=== PATIENT | male | born 1985 ===

== ENCOUNTER 2017-05-01 23:41 | Emergency (ER) | payer BC ==
[2017-05-01 23:47] VITALS: BP 111/73; PULSE 82; TEMP 98; BMI 22.9
[2017-05-01] MEDS ORDERED: LIDOCAINE HCL 1%, 10 MG/ML (50 mL VIAL) SQ ONE (23:52)
[2017-05-02] MEDS ORDERED: SULFAMETHOXAZOLE/TRIMETHOPRIM 800MG/160MG D.S. TABLET PO ONE (00:06)
[2017-05-02] MEDS ORDERED: SULFAMETHOXAZOLE/TRIMETHOPRIM 800MG/160MG D.S. TABLET ONE (00:07)
--- NOTE | 2017-05-02 00:08 | PDOC ---
History of Present Illness - General Chief Complaint: Pain, Acute Stated Complaint: EAR ACHE X 1 DAY/CYST TO EAR X 1 MONTH Time Seen by Provider: 05/01/17 23:43 History Source: Patient Exam Limitations: No Limitations - History of Present Illness Initial Comments: 05/02/17 00:09 32-year-old male with prior history of an abscess several years ago behind his right ear presents with an abscess behind his left ear for approximately one month. Has become reportedly increased in size and sore more painful and he denies any fevers or chills. Came into the ED for further evaluation. Past History - Past Medical History Allergies/Adverse Reactions: Allergies Allergy/AdvReac Type Severity Reaction Status Date / Time No Known Allergies Allergy Verified 05/01/17 23:43 Home Medications: Ambulatory Orders Sulfamethoxazole/Trimethoprim [Bactrim Ds -] 1 tab PO BID #14 tablet 05/02/17 Other medical history: DENIES - Surgical History Appendectomy: Yes - Psycho/Social/Smoking Cessation Hx Anxiety: No Suicidal Ideation: No Smoking History: Current every day smoker Have you smoked in the past 12 months: Yes Number of Cigarettes Smoked Daily: 10 Information on smoking cessation initiated: Yes 'Breaking Loose' booklet given: 05/01/17 Hx Alcohol Use: No Drug/Substance Use Hx: No Substance Use Type: None Review of Systems - Review of Systems Able to Perform ROS?: Yes Comments:: 05/02/17 00:10 GENERAL/CONSTITUTIONAL: No fever, weakness. HEAD, EYES, EARS, NOSE AND THROAT: No change in vision. No ear pain or discharge. No sore throat. Skin abscess behind his left ear CARDIOVASCULAR: No chest pain or shortness of breath. RESPIRATORY: No cough, wheezing, or hemoptysis. GASTROINTESTINAL: No abdominal pain, nausea, vomiting, diarrhea, or decreased PO intolerance. GENITOURINARY: No dysuria, frequency, or change in urination. MUSCULOSKELETAL: No joint or muscle swelling or pain. No neck or back pain. SKIN: No rash NEUROLOGIC: No headache, vertigo, loss of consciousness, or change in strength/ sensation. ENDOCRINE: No increased thirst. No abnormal weight change. HEMATOLOGIC/LYMPHATIC: No anemia, easy bleeding, or history of blood clots. ALLERGIC/IMMUNOLOGIC: No hives or skin allergy. *Physical Exam - Vital Signs Last Vital Signs Temp Pulse Resp BP Pulse Ox 98 F 82 16 111/73 97 05/01/17 23:43 05/01/17 23:43 05/01/17 23:43 05/01/17 23:43 05/01/17 23:43 - Physical Exam Comments: 05/02/17 00:10 GENERAL: Awake, alert, and fully oriented, in no acute distress. HEAD: No signs of trauma EYES: PERRLA, EOMI, sclera anicteric, conjunctiva clear ENT: Auricles normal inspection, hearing grossly normal, nares patent, oropharynx clear without exudates. Approximately 2x2 cm fluctuance mass, mildly tender to palpation, posterior to left ear. EXTREMITIES: Normal range of motion, no edema. No clubbing or cyanosis. No cords, erythema, or tenderness NEUROLOGICAL: Cranial nerves II through XII grossly intact. Normal speech, normal gait SKIN: Warm, Dry, normal turgor, no rashes or lesions noted. Procedures - Incision and Drainage I&D Site: Left: Other (posterior to left ear) Betadine cleansed: (cleaned with alcohol) Anesthesia: 1% Lidocaine Volume(ml): 1 Blade Size: 11 Attempts: 1 Plain Packing: Yes (1/4 inch packing placed) Complications: other Dressing: Yes ED Treatment Course - Medications Given in the ED: ED Medications Discontinued Medications Generic Name Dose Route Start Last Admin Trade Name Vonnie PRN Reason Stop Dose Admin Lidocaine HCl 5 ml 05/01/17 23:52 05/02/17 00:05 Xylocaine 1% SQ 05/01/17 23:53 Not Given ONCE ONE Medical Decision Making - Medical Decision Making 05/02/17 00:12 Vital Signs Temp Pulse Resp BP Pulse Ox 98 F 82 16 111/73 97 05/01/17 23:43 05/01/17 23:43 05/01/17 23:43 05/01/17 23:43 05/01/17 23:43 Bedside ultrasound demonstrated a pocket of fluid. With the patient's consent, local anesthesia was achieved with 1% lidocaine without epinephrine. 11 blade was utilized. Approximately 1 mL of purulent drainage obtained. Wound culture was ordered. Packing placed. Bactrim was ordered. Patient to return to the ED in 2 days for wound check. I discussed the physical exam findings, ancillary test results and final diagnoses with the patient. I answered all of the patient's questions. The patient was satisfied with the care received and felt comfortable with the discharge plan and treatment plan. The patient will call their primary care physician within 24 hours to arrange follow-up and will return to the Emergency Department with any new, persistant or worsening symptoms. *DC/Admit/Observation/Transfer Diagnosis at time of Disposition: Abscess - Discharge Dispostion Disposition: HOME Condition at time of disposition: Stable Admit: No - Prescriptions Prescriptions: Sulfamethoxazole/Trimethoprim [Bactrim Ds -] 1 tab PO BID #14 tablet - Referrals Referrals: Arnel Kebede MD [Staff Physician] - - Patient Instructions Printed Discharge Instructions: DI for Incision and Drainage of a Skin Abscess Additional Instructions: You have had an abscess drained. Please take the bactrim every 12 hours for the next 7 days. Please keep the packing in until your next visit. Please return to the ER in 2 days for wound check. Take 600 mg ibuprofen every 6 hours as needed for pain.
== END 2017-05-02 00:12 | disposition home or self-care (01) ==
LOC: FER 23:41
PROC: 0H93XZZ Drainage of Left Ear Skin, External Approach (ICD-10-PCS; principal; 2017-05-01)
DX: H60.02 Abscess of left external ear (principal); F17.210 Nicotine dependence, cigarettes, uncomplicated
CPT/HCPCS: 87070; 87205; 99281-25

== ENCOUNTER 2017-05-03 23:34 | Emergency (ER) | payer BC ==
[2017-05-03 23:41] VITALS: BP 109/69; PULSE 78; TEMP 98; BMI 22.1
--- NOTE | 2017-05-03 23:46 | PDOC ---
Suture Removal/Wound Check HPI - History of Present Illness Chief Complaint: Revisit,Wound Recheck Stated Complaint: PACKING REMOVAL Time Seen by Provider: 05/03/17 23:46 Date of Last ED visit: 05/01/17 - Previous ED Treatment Type of procedure performed on last visit: Yes: I&D of Abscess Antibiotics Prescribed: Yes - Onset of Previous Treatment Comment:: This 32-year-old man presents 2 days after incision and drainage of abscess behind his left ear was performed here. Patient reports no significant pain and no fever/chills since procedure. Gauze was changed over the packing but packing was not removed at home. No other new problems. Patient has been taking Bactrim twice a day as prescribed. Past History - Past Medical History Allergies/Adverse Reactions: Allergies No Known Allergies Allergy (Verified 05/03/17 23:36) Home Medications: Ambulatory Orders Sulfamethoxazole/Trimethoprim [Bactrim Ds -] 1 tab PO BID #14 tablet 05/02/17 - Immunization History Immunizations Up to Date: No - Social History Smoking Status: Current every day smoker Number of Ciarettes Per Day: 10 Suture Removal/Wound Check PE - Physical Exam Comments: Wound packing removed without difficulty. Small amount of purulent drainage mixed with blood expressed from the wound without significant tenderness. Afterwards, there is a small amount of bleeding from the abscess cavity that was controlled with direct pressure . Wound was left open. Wound culture and sensitivity from 05/01 revealed normal skin bassem. Since there is no significant erythema/edema/tenderness of the wound, patient advised to discontinue Bactrim. Patient will allow water to flow into the wound while taking a shower; he can use Band-Aid on wound during the day as needed if there is any residual bleeding but to leave the wound open as much as possible. Patient will return to the emergency room if there is any recurrent swelling or pain in the area. *DC/Admit/Observation/Transfer Diagnosis at time of Disposition: Wound check, abscess - Discharge Dispostion Disposition: HOME Condition at time of disposition: Stable - Patient Instructions Printed Discharge Instructions: DI for Incision and Drainage of a Skin Abscess , Smoking Cessation Additional Instructions: Stop antibiotics Can allow water to wash over wound during shower bandaid to wound as needed Return to ER or see your doctor very becomes red/swollen/painful
== END 2017-05-04 | disposition home or self-care (01) ==
LOC: FER 23:34
DX: Z48.01 Encounter for change or removal of surgical wound dressing (principal); F17.210 Nicotine dependence, cigarettes, uncomplicated
CPT/HCPCS: 99281-25